=== PATIENT | female | born 2000 | race Caucasian/White ===

== ENCOUNTER 2023-12-25 09:35 | Outpatient (CLI) | payer BC, SELFPAY ==
--- NOTE | ~2023-12-25 | CT_ITS ---
EXAMINATION: CT diagnostic chest wo con DATE: 12/25/2023 11:02 INDICATION: abnormal CT of chest, histoplasmosis W/ BXs,ECHAVARRIA WITH DIZZY TECHNIQUE: Computed tomography (CT) of the chest was performed without intravenous contrast. Addition al 3D reconstructions utilizing coronal maximum intensity projection (MIP) were performed. Automated exposure control and iterative reconstruction technique were employed. The dose-length product was 12 8.42 mGy-cm. COMPARISON: Outside institution CT dated 12/06/2022 FINDINGS: Interval resolution of a prior masslike region of consolidation in the paramediastinal suprahilar rig ht upper lobe. There is also been resolution of the prior likely associated likely reactive mediastin al lymphadenopathy. There are multiple scattered bilateral calcified pulmonary nodules along with tad cified mediastinal and right hilar lymph nodes and multiple small splenic calcifications, all consist ent with old granulomatous disease. No noncalcified pulmonary nodules, pneumonia, pulmonary edema or pleural effusion. Heart size is normal. No pericardial effusion. No significant change in residual th ymic tissue in the anterior mediastinum with characteristic drank the configuration with mixed soft t issue and fat attenuation. Thoracic aorta is normal in caliber. Visualized upper abdomen and bones ar e unremarkable. IMPRESSION: 1. Interval resolution of prior masslike region of consolidation in the suprahilar right upper lobe a nd associated likely reactive mediastinal lymphadenopathy which were most likely infectious in etiolo gy. No suspicious pulmonary nodules, acute cardiopulmonary disease or pathologically enlarged lymphad enopathy in the current study. Reviewed, dictated and finalized at location [facility]. IMPRESSION: 1. Interval resolution of prior masslike region of consolidation in the suprahi lar right upper lobe and associated likely reactive mediastinal lymphadenopathy which were most likely infectious in etiology. No suspicious pulmonary nodules , acute cardiopulmonary disease or pathologically enlarged lymphadenopathy in t he current study.
== END 2023-12-25 09:36 | disposition home or self-care (01) ==
DX: R93.89 Abnormal findings on diagnostic imaging of other specified body structures (principal)
CPT/HCPCS: 71250